=== PATIENT | female | born 1950 | race Caucasian/White ===

== ENCOUNTER → 2017-06-11 | Outpatient (CLI) | payer OTHER, MEDICARE ==
--- NOTE | ~2017-06-11 | SLE ---
[facility] [place] [address] POLYSOMNOGRAPHY STUDY Name: NANCY GUZMAN Room #: REG [facility].#: [id number] Admission: 06/11/17 Attend Phys: Kat Leon MD Discharge: Date of : 52 Report #: [id number] THIS REPORT FOR: //name// CC: Kat GUZMAN DATE OF SERVICE: 06/18/2017 HISTORY: A 66-year-old female, daytime somnolence, witnessed apnea and snoring, had tonsils removed by Dr. Palomino, also has history of asthma. COMMENTS: The patient arrived to the lab late. Total sleep time is 387 minutes. Sleep efficiency 95%. Sleep latency 1 minute. REM latency 45 minutes. SLEEP STAGE: 1-9%, 2-59%, 3-1%, REM-31%. Central apnea 4, mixed apnea 1, obstructive apnea 10, hypopnea 30. RERA 17. Apnea-hypopnea index is 7 events per sleep hour. Non-REM AHI 6.8, REM AHI 7.4. RERA 2.6 events per sleep hour. Supine AHI 9.4, left lateral 2.6, right lateral 2.6. Periodic limb movement with arousal index of 5.6 events per sleep hour. 45% of time in snoring. Low oxygen saturation 89%. IMPRESSION: 1. Obstructive sleep apnea/hypopnea, G47.33. 2. Periodic limb movement with arousal index 5.6 events per sleep hour. 3. Snoring noted. 4. No significant arrhythmia noted. SUGGESTIONS: 1. In addition to specific therapy, the patient should be cautioned regarding driving or operating dangerous machinery unless fully alert. 2. Sleep position retraining is recommended. 3. Further evaluation regarding etiology of snoring is recommended. 4. Has early sleep onset and REM latency. Further discussion regarding this is recommended. 5. Further discussion regarding restless legs and periodic limb movement is recommended. 6. Oral appliance or appropriate surgery may be considered with appropriate followup. 7. As the patient has used a CPAP in the past, may consider an auto-titrating CPAP between 5 and 10 cm water pressure. Alternatively, could use a CPAP titration night. 8. If signs and symptoms not improved with therapy, further evaluation recommended. [address] [address] POLYSOMNOGRAPHY STUDY Name: NANCY GUZMAN Room #: REG [facility] Patrick#: [id number] Admission: 06/11/17 Attend Phys: Kat Leon MD Discharge: Date of : 52 Report #: [id number] Please do not hesitate to contact me if I may be of further assistance. <ELECTRONICALLY SIGNED> By: Kat Leon MD 06/19/17 1941 09 19 Kat Leon MD /nt
== END ==
LOC: SLEEPLAB 05-21 07:57
DX: G47.33 Obstructive sleep apnea (adult) (pediatric) (principal)